=== PATIENT | female | born 1955 | race Caucasian/White ===

== ENCOUNTER 2016-12-07 01:31 | Inpatient (IN) | payer OTHER ==
[~2016-12-07] VITALS: Ht 167.6 cm; Wt 147.2 kg
[~2016-12-07 01:31] MED LIST: Aspirin E.C. PO; Atarax PO; BUMETANIDE0.5 MG PO; BUSPAR10 MG; BUSPAR10 MG PO; BUSPAR15 MG PO; Buspar PO; CALAN SR,COVER120 MG PO; CRESTOR20 MG PO; Ceftin PO; DAILY VITAMIN1 EAC8 PO; GLUCOSAMINE-CH1 EA11 PO; HYDROCHLOROTHIA25 MG PO; Hydrodiuril,Oretic,E PO; KEPPRA750 MG PO; LAMICTAL200 MG PO; LASIX40 MG PO; LEXAPRO20 MG PO; LISINOPRIL10 MG PO; LaMICtal PO; Lexapro PO; MEGA BIOTIN10000 MCG PO; METFORMIN HCL500 MG PO; NABUMETONE750 MG PO; NEXIUM40 MG PO; OXYCODONE HCL5 MG PO; Relafen PO; SODIUM CHLORIDE1 G1 PO; Sodium Chloride PO; TRILEPTAL600 MG PO; Trileptal PO; VERAPAMIL ER300 MG PO; VERELAN PM300 MG PO; VYTORIN 10/21 TABLET PO; ZITHROMAX250 MG PO; predniSONE PO
[2016-12-07 02:13] LABS: BASOPHIL COUNT 0.1 K/uL (0-0.1); EOSINOPHIL (%) 0.5 % (0-5); HEMATOCRIT 38.2 % (36.0-46.0); IMMATURE GRANULOCYTE (%) 0.4 % (0.0-0.7); INSTRUMENT ABS NEUTROPHIL CT 6.7 K/uL; LYMPHOCYTE COUNT 1.3 K/uL (1.0-2.8); MCH 29.2 PG (29.0-34.0); MCHC 31.7 G/DL (30.0-36.0); MCV 92.3 FL (83-99); MEAN PLAT.VOLUME 10.6 uM^3 (9.5-12.4); MONOCYTE (%) 4.8 % (3-12); MONOCYTE COUNT 0.4 K/uL (0-0.8); NEUTROPHIL (%) 78.6 % (45-76); NEUTROPHIL COUNT 6.7 K/uL (1.8-6.4); PLATELET COUNT 228 K/uL (156-360); RBC DIS.WIDTH-SD 44.1 % (39-53); RED BLOOD COUNT 4.14 M/uL (3.80-5.20); WHITE BLOOD COUNT 8.5 K/uL (4.1-10.2)
[2016-12-07 02:25] LABS: CHLORIDE 99 mEq/L (99-109); POTASSIUM 4.9 mEq/L (3.7-5.4); SODIUM 137 mEq/L (136-147)
[2016-12-07 02:27] LABS: GLUCOSE 178 mg/dL (70-99)
[2016-12-07 02:28] LABS: ANION GAP 14 MEQ/L (2-14); PROTHROMBIN TIME 10.6 (9.2-11.2)
[2016-12-07 02:29] LABS: TOTAL BILIRUBIN 0.4 mg/dL (0.0-1.0)
[2016-12-07 02:31] LABS: ALKALINE PHOSPHATASE 152 IU/L (3-129); GFR ESTIMATE (CALCULATED) > 59 mL/min/
[2016-12-07 02:32] LABS: UREA NITROGEN (BUN) 17 mg/dL (9-23)
[2016-12-07 02:34] LABS: LIPASE 9 U/L (1.0-51.0)
[2016-12-07 02:41] LABS: TROP-I INTERPRETATION NEGATIVE; TROPONIN-I < 0.01 ng/mL (0.0-0.30)
[2016-12-07 03:22] LABS: CREATINE KINASE 199 IU/L (1-294)
[2016-12-07 04:15] LABS: ADD MIUA? NO; BILIRUBIN NEGATIVE; BLOOD NEGATIVE; COLOR YELLOW ((YELLOW)); GLUCOSE (STRIP) NEGATIVE; KETONES NEGATIVE; LEUKOCYTES NEGATIVE; NITRITE NEGATIVE; PROTEIN (STRIP) NEGATIVE; SPECIFIC GRAVITY 1.013 (1.000-1.030); UCUL ADDED? NO; UROBILINOGEN 0.2 MG/DL (0.2-1.0)
[2016-12-07 05:40] VITALS: BP 136/65
[2016-12-07 07:25] VITALS: BP 163/65
[2016-12-07] MEDS ORDERED: LISINOPRIL40 MG PO (09:28)
[2016-12-07] MEDS ORDERED: ERGOCALCIF50000 UNIT PO (09:31)
[2016-12-07] MEDS ORDERED: KLOR-CON M2020 MEQ PO (09:32)
[2016-12-07 12:03] VITALS: BP 164/84
[2016-12-07 15:56] LABS: POINT-OF-CARE METER ID UU14188577
[2016-12-07 16:10] VITALS: BP 123/64
[2016-12-07 19:58] VITALS: BP 132/68
[2016-12-07 21:53] LABS: POINT-OF-CARE METER ID UU14149397
[2016-12-08 00:02] VITALS: BP 145/67
[2016-12-08 04:16] VITALS: BP 140/84
[2016-12-08 06:23] LABS: HEMATOCRIT 31.8 % (36.0-46.0); MCH 29.3 PG (29.0-34.0); MCHC 31.8 G/DL (30.0-36.0); MCV 92.2 FL (83-99); MEAN PLAT.VOLUME 10.6 uM^3 (9.5-12.4); PLATELET COUNT 195 K/uL (156-360); RBC DIS.WIDTH-CV 13.4 % (11.8-14.6); RBC DIS.WIDTH-SD 44.9 % (39-53); RED BLOOD COUNT 3.45 M/uL (3.80-5.20)
[2016-12-08 06:25] LABS: WHITE BLOOD COUNT 5.3 K/uL (4.1-10.2)
[2016-12-08 06:30] LABS: ALKALINE PHOSPHATASE 112 IU/L (3-129); ANION GAP 8 MEQ/L (2-14); CHLORIDE 101 MEQ/L (99-109); GFR ESTIMATE (CALCULATED) > 59 mL/min/; HDL CHOLESTEROL 50 MG/DL (Desirable>=50); LDL CHOLESTEROL 87 mg/dL (Desirable<100); NON-HDL CHOLESTEROL 115 mg/dL (Desirable<160); SAMPLE HEMOLYSIS CHECK 0; SAMPLE ICTERIC CHECK 0; SAMPLE LIPEMIA CHECK 0; SODIUM 137 MEQ/L (136-147); TOTAL BILIRUBIN 0.5 MG/DL (0.0-1.0); TOTAL CHOLESTEROL 165 mg/dL (Desirable<200); TRIGLYCERIDES 139 MG/DL (Normal: <150); UREA NITROGEN (BUN) 12 mg/dL (9-23)
[2016-12-08 06:30] LABS: POINT-OF-CARE METER ID UU14188577
[2016-12-08 06:41] LABS: GLUCOSE 100 mg/dL (70-99); POTASSIUM 3.9 MEQ/L (3.7-5.4)
[2016-12-08 11:33] VITALS: BP 155/76
[2016-12-08 11:46] LABS: POINT-OF-CARE METER ID UU14188577
[2016-12-08 15:35] VITALS: BP 133/59
[2016-12-08 17:46] LABS: POINT-OF-CARE METER ID UU14149397
[2016-12-08 19:43] VITALS: BP 132/72
[2016-12-09 00:15] VITALS: BP 120/60
[2016-12-09 03:15] VITALS: BP 122/60
[2016-12-09 05:54] LABS: HEMATOCRIT 32.2 % (36.0-46.0); MCH 29.5 PG (29.0-34.0); MCHC 31.7 G/DL (30.0-36.0); MCV 93.1 FL (83-99); MEAN PLAT.VOLUME 10.3 uM^3 (9.5-12.4); PLATELET COUNT 170 K/uL (156-360); RBC DIS.WIDTH-CV 13.2 % (11.8-14.6); RBC DIS.WIDTH-SD 44.8 % (39-53); RED BLOOD COUNT 3.46 M/uL (3.80-5.20); WHITE BLOOD COUNT 5.2 K/uL (4.1-10.2)
[2016-12-09 06:44] LABS: POINT-OF-CARE METER ID UU14188577
[2016-12-09 06:52] LABS: ANION GAP 8 MEQ/L (2-14); CHLORIDE 103 MEQ/L (99-109); GFR ESTIMATE (CALCULATED) > 59 mL/min/; GLUCOSE 98 mg/dL (70-99); POTASSIUM 3.7 MEQ/L (3.7-5.4); SAMPLE HEMOLYSIS CHECK 0; SAMPLE ICTERIC CHECK 0; SAMPLE LIPEMIA CHECK 0; SODIUM 140 MEQ/L (136-147); UREA NITROGEN (BUN) 14 mg/dL (9-23)
[2016-12-09 08:11] VITALS: BP 110/51
[2016-12-09 12:30] VITALS: BP 116/67
== END 2016-12-09 14:26 | disposition home or self-care (01) | DRG 101 ==
LOC: EME → EDBD 01:31 → 3EAST 04:36 → EDOF 04:36 → 3EAST 05:19
PROVIDERS: Emergency Medicine; Hospitalist; Internal Medicine
DX: G40.909 Epilepsy, unspecified, not intractable, without status epilepticus (principal); I50.32 Chronic diastolic (congestive) heart failure; Z68.43 Body mass index [BMI] 50.0-59.9, adult; R41.82 Altered mental status, unspecified; F32.9 Major depressive disorder, single episode, unspecified; F41.9 Anxiety disorder, unspecified; I10 Essential (primary) hypertension; E11.9 Type 2 diabetes mellitus without complications; E78.5 Hyperlipidemia, unspecified; K21.9 Gastro-esophageal reflux disease without esophagitis; R25.1 Tremor, unspecified; E66.01 Morbid (severe) obesity due to excess calories; Z96.653 Presence of artificial knee joint, bilateral; S06.2X9S Diffuse traumatic brain injury with loss of consciousness of unspecified duration, sequela; Z88.5 Allergy status to narcotic agent; Z85.3 Personal history of malignant neoplasm of breast
CPT/HCPCS: 70450; 70551; 71010; 80048; 80053; 80061; 80156; 80175 90; 81003; 82550; 82948; 83605; 83690; 83880; 84484; 85025; 85027; 85610; 85730; 87040; 93005; 95819; 99281; 99285; J1650; J1815; J1953; J2060; J2250; J7030; J7050

== ENCOUNTER 2017-02-23 12:27 | Emergency (ER) | payer OTHER ==
[~2017-02-23] VITALS: Ht 167.6 cm; Wt 161.4 kg
[~2017-02-23 12:27] MED LIST changes: +ERGOCALCIF50000 UNIT PO; +KLOR-CON M2020 MEQ PO; +LISINOPRIL40 MG PO
[2017-02-23] MEDS ORDERED: LIDODERM 5% P1 PATCH TD (17:05)
[2017-02-23] MEDS ORDERED: FLEXERIL10 MG PO (17:05)
[2017-02-23] MEDS ORDERED: NORCO 5/3251 TABLET PO (17:05)
[2017-02-23] MEDS ORDERED: MOBIC7.5 MG PO (17:05)
[2017-02-23 18:34] LABS: ADD MIUA? YES; BILIRUBIN NEGATIVE; BLOOD NEGATIVE; COLOR YELLOW ((YELLOW)); GLUCOSE (STRIP) NEGATIVE; KETONES NEGATIVE; LEUKOCYTES SMALL; NITRITE NEGATIVE; PROTEIN (STRIP) NEGATIVE; UROBILINOGEN 0.2 MG/DL (0.2-1.0)
[2017-02-23 18:40] LABS: BACTERIA 1+ /HPF; EPITHELIAL CELLS RARE /HPF; HYALINE CASTS 0-5 /LPF; MUCUS TRACE /LPF; RED BLOOD CELLS 0-5 /HPF (0-5); WHITE BLOOD CELLS 20-30 /HPF (0-5)
== END 2017-02-23 18:34 | disposition home or self-care (01) ==
LOC: EME 12:27
PROVIDERS: Nurse Practitioner Family
DX: M25.561 Pain in right knee (principal); M54.41 Lumbago with sciatica, right side; G40.909 Epilepsy, unspecified, not intractable, without status epilepticus; R82.99 Other abnormal findings in urine; Z96.651 Presence of right artificial knee joint; Z91.81 History of falling; I10 Essential (primary) hypertension; E11.9 Type 2 diabetes mellitus without complications; Z79.84 Long term (current) use of oral hypoglycemic drugs
CPT/HCPCS: 73560; 81003; 99281; 99284

== ENCOUNTER 2017-02-25 10:05 | Inpatient (IN) | payer OTHER ==
[~2017-02-25] VITALS: Ht 162.6 cm; Wt 143.3 kg
[~2017-02-25 10:05] MED LIST changes: +FLEXERIL10 MG PO; +LIDODERM 5% P1 PATCH TD; +MOBIC7.5 MG PO; +NORCO 5/3251 TABLET PO
[2017-02-25 12:22] LABS: HEMATOCRIT 34.9 % (36.0-46.0); MCH 29.8 PG (29.0-34.0); MCHC 31.8 G/DL (30.0-36.0); MCV 93.8 FL (83-99); MEAN PLAT.VOLUME 10.6 uM^3 (9.5-12.4); PLATELET COUNT 206 K/uL (156-360); RBC DIS.WIDTH-CV 12.7 % (11.8-14.6); RBC DIS.WIDTH-SD 43.4 % (39-53); RED BLOOD COUNT 3.72 M/uL (3.80-5.20); WHITE BLOOD COUNT 6.1 K/uL (4.1-10.2)
[2017-02-25 12:37] LABS: CHLORIDE 105 mEq/L (99-109); POTASSIUM 4.7 mEq/L (3.7-5.4); SODIUM 139 mEq/L (136-147)
[2017-02-25 12:39] LABS: GLUCOSE 121 mg/dL (70-99)
[2017-02-25 12:40] LABS: ANION GAP 10 MEQ/L (2-14)
[2017-02-25 12:41] LABS: TOTAL BILIRUBIN 0.2 mg/dL (0.0-1.0)
[2017-02-25 12:42] LABS: ALKALINE PHOSPHATASE 128 IU/L (3-129)
[2017-02-25 12:43] LABS: GFR ESTIMATE (CALCULATED) 53 mL/min/
[2017-02-25 12:44] LABS: UREA NITROGEN (BUN) 17 mg/dL (9-23)
[2017-02-25 13:00] LABS: ADD MIUA? YES; BILIRUBIN NEGATIVE; BLOOD NEGATIVE; COLOR YELLOW ((YELLOW)); GLUCOSE (STRIP) NEGATIVE; KETONES NEGATIVE; LEUKOCYTES MODERATE; NITRITE POSITIVE; PROTEIN (STRIP) NEGATIVE; UROBILINOGEN 0.2 MG/DL (0.2-1.0)
[2017-02-25 13:04] LABS: BACTERIA RARE /HPF; EPITHELIAL CELLS 1+ /HPF; MUCUS TRACE /LPF; RED BLOOD CELLS 0-5 /HPF (0-5); UCUL ADDED? NO; WHITE BLOOD CELLS 20-30 /HPF (0-5)
[2017-02-25] MEDS ORDERED: BACTRIM,SEPT1 TABLET PO (13:37)
[2017-02-25] MEDS ORDERED: BUSPAR15 MG PO (18:00)
[2017-02-25 19:56] LABS: POINT-OF-CARE METER ID UU13113702
[2017-02-25 21:01] LABS: AMPHETAMINES QUANT VALUE 0 NG/ML; BARBITUATES QUANT VALUE 0 NG/ML; BENZODIAZEPINES QUANT VALUE 0 NG/ML; BENZODIAZEPINES, URINE SCREEN Negative (200 ng/mL); MARIJUANA QUANT VALUE 0 NG/ML; OPIATES QUANTITATIVE VALUE 0 NG/ML; PHENCYCLIDINE QUANT VALUE 0 NG/ML
[2017-02-25 22:06] VITALS: BP 151/72
[2017-02-26 04:02] VITALS: BP 119/60
[2017-02-26 06:22] LABS: HEMATOCRIT 29.7 % (36.0-46.0); MCH 30.6 PG (29.0-34.0); MCV 95.8 FL (83-99); MEAN PLAT.VOLUME 10.5 uM^3 (9.5-12.4); PLATELET COUNT 172 K/uL (156-360); RBC DIS.WIDTH-CV 12.8 % (11.8-14.6); RBC DIS.WIDTH-SD 44.9 % (39-53); WHITE BLOOD COUNT 4.8 K/uL (4.1-10.2)
[2017-02-26 06:33] LABS: POINT-OF-CARE METER ID UU14174225
[2017-02-26 06:45] LABS: ANION GAP 8 MEQ/L (2-14); CHLORIDE 106 MEQ/L (99-109); GFR ESTIMATE (CALCULATED) > 59 mL/min/; GLUCOSE 97 mg/dL (70-99); POTASSIUM 4.1 MEQ/L (3.7-5.4); SAMPLE HEMOLYSIS CHECK 0; SAMPLE ICTERIC CHECK 0; SAMPLE LIPEMIA CHECK 0; SODIUM 141 MEQ/L (136-147); UREA NITROGEN (BUN) 14 mg/dL (9-23)
[2017-02-26 12:06] VITALS: BP 129/61
[2017-02-26 12:14] LABS: POINT-OF-CARE METER ID UU14174225
[2017-02-26 16:33] VITALS: BP 130/66
[2017-02-26 17:06] LABS: POINT-OF-CARE METER ID UU14174225
[2017-02-26 21:25] VITALS: BP 126/66
[2017-02-26 21:32] LABS: POINT-OF-CARE METER ID UU13113717
[2017-02-26 23:50] VITALS: BP 119/57
[2017-02-27 03:57] VITALS: BP 160/74
[2017-02-27 05:46] LABS: POINT-OF-CARE METER ID UU14174225
[2017-02-27 08:00] VITALS: BP 147/62
[2017-02-27] MEDS ORDERED: CEFDINIR300 MG PO (11:42)
[2017-02-27 12:09] VITALS: BP 135/64
== END 2017-02-27 16:32 | disposition home health service (06) | DRG 101 ==
LOC: EME → EDBD 10:05 → EME 10:05 → EDOF 17:46 → 5SOUTH 20:10 → EDOF 20:10 → 5SOUTH 21:40
PROVIDERS: Emergency Medicine; Hospitalist; Internal Medicine
DX: G40.911 Epilepsy, unspecified, intractable, with status epilepticus (principal); F05 Delirium due to known physiological condition; I11.0 Hypertensive heart disease with heart failure; I50.22 Chronic systolic (congestive) heart failure; D64.9 Anemia, unspecified; E11.42 Type 2 diabetes mellitus with diabetic polyneuropathy; E66.01 Morbid (severe) obesity due to excess calories; E78.2 Mixed hyperlipidemia; K21.9 Gastro-esophageal reflux disease without esophagitis; M19.90 Unspecified osteoarthritis, unspecified site; N39.0 Urinary tract infection, site not specified; Z68.43 Body mass index [BMI] 50.0-59.9, adult; Z79.4 Long term (current) use of insulin; Z79.899 Other long term (current) drug therapy; Z85.3 Personal history of malignant neoplasm of breast; R25.1 Tremor, unspecified; R25.3 Fasciculation; R53.1 Weakness; Z79.84 Long term (current) use of oral hypoglycemic drugs; M25.561 Pain in right knee
CPT/HCPCS: 70450; 80048; 80053; 80175 90; 80306 90; 81003; 82948; 85027; 93005; 95819; 99281; 99285; J0696; J1644; J1953; J2060; J7030; J7050

== ENCOUNTER 2017-05-19 18:17 | Inpatient (IN) | payer OTHER ==
[~2017-05-19] VITALS: Ht 170.2 cm; Wt 138.9 kg
[~2017-05-19 18:17] MED LIST changes: +BACTRIM,SEPT1 TABLET PO; +CEFDINIR300 MG PO
[2017-05-19 19:20] LABS: HEMATOCRIT 36.4 % (36.0-46.0); MCH 30.2 PG (29.0-34.0); MCHC 33.2 G/DL (30.0-36.0); MCV 90.8 FL (83-99); MEAN PLAT.VOLUME 10.1 uM^3 (9.5-12.4); PLATELET COUNT 235 K/uL (156-360); RBC DIS.WIDTH-CV 12.4 % (11.8-14.6); RBC DIS.WIDTH-SD 41.1 % (39-53); RED BLOOD COUNT 4.01 M/uL (3.80-5.20); WHITE BLOOD COUNT 8.1 K/uL (4.1-10.2)
[2017-05-19 19:33] LABS: CHLORIDE 98 mEq/L (99-109); POTASSIUM 4.8 mEq/L (3.7-5.4); SODIUM 134 mEq/L (136-147)
[2017-05-19 19:34] LABS: GLUCOSE 145 mg/dL (70-99)
[2017-05-19 19:36] LABS: ANION GAP 11 MEQ/L (2-14)
[2017-05-19 19:38] LABS: GFR ESTIMATE (CALCULATED) > 59 mL/min/
[2017-05-19 19:39] LABS: UREA NITROGEN (BUN) 14 mg/dL (9-23)
[2017-05-19 19:40] LABS: TROP-I INTERPRETATION NEGATIVE; TROPONIN-I 0.02 ng/mL (0.0-0.30)
[2017-05-20 01:00] VITALS: BP 129/79
[2017-05-20 04:29] VITALS: BP 143/83
[2017-05-20 06:38] LABS: HEMATOCRIT 33.2 % (36.0-46.0); MCH 30.6 PG (29.0-34.0); MCHC 33.1 G/DL (30.0-36.0); MCV 92.2 FL (83-99); MEAN PLAT.VOLUME 10.5 uM^3 (9.5-12.4); PLATELET COUNT 230 K/uL (156-360); RBC DIS.WIDTH-CV 12.7 % (11.8-14.6); RBC DIS.WIDTH-SD 42.7 % (39-53); WHITE BLOOD COUNT 6.3 K/uL (4.1-10.2)
[2017-05-20 06:58] LABS: POINT-OF-CARE METER ID UU13113725
[2017-05-20 07:06] LABS: ALKALINE PHOSPHATASE 124 IU/L (3-129); ANION GAP 9 MEQ/L (2-14); CHLORIDE 101 MEQ/L (99-109); GFR ESTIMATE (CALCULATED) > 59 mL/min/; SAMPLE HEMOLYSIS CHECK 0; SAMPLE ICTERIC CHECK 0; SAMPLE LIPEMIA CHECK 0; SODIUM 137 MEQ/L (136-147); TOTAL BILIRUBIN 0.4 MG/DL (0.0-1.0); UREA NITROGEN (BUN) 13 mg/dL (9-23)
[2017-05-20 07:08] LABS: GLUCOSE 104 mg/dL (70-99)
[2017-05-20 08:02] VITALS: BP 127/59
[2017-05-20] MEDS ORDERED: FUROSEMIDE40 MG PO (11:19)
[2017-05-20] MEDS ORDERED: GLUCOSAMINE1000 MG PO (11:21)
[2017-05-20 11:23] VITALS: BP 116/55
[2017-05-20] MEDS ORDERED: NABUMETONE750 MG PO (11:34)
[2017-05-20] MEDS ORDERED: SODIUM CHLORIDE1 G1 PO (11:36)
[2017-05-20] MEDS ORDERED: CENTRUM ADULTS1 EACH PO (11:43)
[2017-05-20] MEDS ORDERED: ICY HOT CREAM35.4 G1 TP (11:49)
[2017-05-20] MEDS ORDERED: VOLTAREN 1% GE100 GM TP (11:51)
[2017-05-20 12:06] LABS: POINT-OF-CARE METER ID UU13113725
[2017-05-20 15:37] VITALS: BP 123/58
[2017-05-20 16:32] LABS: POINT-OF-CARE METER ID UU13113725
[2017-05-20 17:51] LABS: ADD MIUA? YES; BILIRUBIN NEGATIVE; BLOOD SMALL; COLOR YELLOW ((YELLOW)); GLUCOSE (STRIP) NEGATIVE; KETONES NEGATIVE; LEUKOCYTES MODERATE; NITRITE POSITIVE; PROTEIN (STRIP) NEGATIVE; SPECIFIC GRAVITY 1.018 (1.000-1.030); UROBILINOGEN 0.2 MG/DL (0.2-1.0)
[2017-05-20 18:28] LABS: BACTERIA NONE SEEN /HPF; EPITHELIAL CELLS RARE /HPF; MUCUS TRACE /LPF; RED BLOOD CELLS 0-5 /HPF (0-5); UCUL ADDED? YES; WHITE BLOOD CELLS 30-40 /HPF (0-5)
[2017-05-20 20:30] VITALS: BP 110/74
[2017-05-20 21:38] LABS: POINT-OF-CARE METER ID UU13113725
[2017-05-21] VITALS: BP 124/58
[2017-05-21 06:45] VITALS: BP 124/58
[2017-05-21 11:36] VITALS: BP 145/66
[2017-05-21 16:15] VITALS: BP 140/68
[2017-05-21 16:16] VITALS: BP 134/88
[2017-05-21 21:10] LABS: POINT-OF-CARE USER ID 610211320
[2017-05-22] VITALS: BP 131/60
[2017-05-22 04:37] VITALS: BP 127/66
[2017-05-22 05:39] LABS: POINT-OF-CARE METER ID UU13113725; POINT-OF-CARE USER ID 610211320
[2017-05-22 06:18] LABS: EOSINOPHIL (%) 4.2 % (0-5); EOSINOPHIL COUNT 0.2 K/uL (0-0.3); HEMATOCRIT 32.2 % (36.0-46.0); IMMATURE GRANULOCYTE (%) 0.2 % (0.0-0.7); INSTRUMENT ABS NEUTROPHIL CT 2.7 K/uL; LYMPHOCYTE COUNT 1.8 K/uL (1.0-2.8); MCH 31.2 PG (29.0-34.0); MCHC 33.5 G/DL (30.0-36.0); MCV 93.1 FL (83-99); MONOCYTE (%) 9.5 % (3-12); MONOCYTE COUNT 0.5 K/uL (0-0.8); NEUTROPHIL (%) 51.4 % (45-76); NEUTROPHIL COUNT 2.7 K/uL (1.8-6.4); PLATELET COUNT 197 K/uL (156-360); RBC DIS.WIDTH-CV 12.8 % (11.8-14.6); RBC DIS.WIDTH-SD 43.9 % (39-53); RED BLOOD COUNT 3.46 M/uL (3.80-5.20); WHITE BLOOD COUNT 5.3 K/uL (4.1-10.2)
[2017-05-22 07:22] VITALS: BP 120/56
[2017-05-22 07:55] LABS: ALKALINE PHOSPHATASE 108 IU/L (3-129); ANION GAP 9 MEQ/L (2-14); CHLORIDE 101 MEQ/L (99-109); GFR ESTIMATE (CALCULATED) > 59 mL/min/; GLUCOSE 125 mg/dL (70-99); POTASSIUM 4.1 MEQ/L (3.7-5.4); SAMPLE HEMOLYSIS CHECK 0; SAMPLE ICTERIC CHECK 0; SAMPLE LIPEMIA CHECK 0; SODIUM 135 MEQ/L (136-147); TOTAL BILIRUBIN 0.4 MG/DL (0.0-1.0); UREA NITROGEN (BUN) 9 mg/dL (9-23)
[2017-05-22 11:22] VITALS: BP 122/60
[2017-05-22 15:31] LABS: POINT-OF-CARE METER ID UU13113725
[2017-05-22 16:47] VITALS: BP 122/60
[2017-05-22 21:33] LABS: POINT-OF-CARE METER ID UU13113725
[2017-05-23 00:07] VITALS: BP 118/57
[2017-05-23 05:42] LABS: POINT-OF-CARE METER ID UU13113725
[2017-05-23 08:04] VITALS: BP 123/46
[2017-05-23] MEDS ORDERED: CEFTIN500 MG PO ×3 (14:52→18:28)
[2017-05-23 16:24] VITALS: BP 131/50
== END 2017-05-23 19:20 | disposition home or self-care (01) | DRG 101 ==
LOC: EME 18:17 → 5EAST 22:38 → EDOF 22:38 → ENRESERV 22:39 → 5EAST 05-20 00:31
PROVIDERS: Emergency Medicine; Hospitalist; Internal Medicine; Student in an Organized Health Care Education/Training Program
DX: G40.901 Epilepsy, unspecified, not intractable, with status epilepticus (principal); I10 Essential (primary) hypertension; E78.5 Hyperlipidemia, unspecified; R09.02 Hypoxemia; N39.0 Urinary tract infection, site not specified; R25.1 Tremor, unspecified; F32.0 Major depressive disorder, single episode, mild; B96.20 Unspecified Escherichia coli [E. coli] as the cause of diseases classified elsewhere; K21.9 Gastro-esophageal reflux disease without esophagitis; F41.9 Anxiety disorder, unspecified; E11.9 Type 2 diabetes mellitus without complications; E66.01 Morbid (severe) obesity due to excess calories; Z91.14 Patient's other noncompliance with medication regimen; Z96.653 Presence of artificial knee joint, bilateral; Z85.3 Personal history of malignant neoplasm of breast; Z68.42 Body mass index [BMI] 45.0-49.9, adult; Z88.6 Allergy status to analgesic agent; Z88.8 Allergy status to other drugs, medicaments and biological substances
CPT/HCPCS: 70450; 71010; 80048; 80053; 80175 90; 81003; 82607; 82746; 82948; 84443; 84484; 85025; 85027; 87040; 87077; 87086; 87186; 93005; 94799; 95819; 99281; 99285; J0696; J1650; J1815; J1953; J2060; J7030; J7050

== ENCOUNTER 2017-07-04 20:55 | Inpatient (IN) | payer OTHER ==
[~2017-07-04] VITALS: Ht 170.2 cm; Wt 138.0 kg
[~2017-07-04 20:55] MED LIST changes: +CEFTIN500 MG PO; +CENTRUM ADULTS1 EACH PO; +FUROSEMIDE40 MG PO; +GLUCOSAMINE1000 MG PO; +ICY HOT CREAM35.4 G1 TP; +VOLTAREN 1% GE100 GM TP
[2017-07-04 22:42] LABS: HEMATOCRIT 36.5 % (36.0-46.0); MCH 30.1 PG (29.0-34.0); MCHC 32.6 G/DL (30.0-36.0); MCV 92.4 FL (83-99); MEAN PLAT.VOLUME 10.3 uM^3 (9.5-12.4); PLATELET COUNT 233 K/uL (156-360); RBC DIS.WIDTH-CV 12.6 % (11.8-14.6); RBC DIS.WIDTH-SD 42.8 % (39-53); RED BLOOD COUNT 3.95 M/uL (3.80-5.20); WHITE BLOOD COUNT 6.1 K/uL (4.1-10.2)
[2017-07-04 22:50] LABS: CHLORIDE 101 mEq/L (99-109); POTASSIUM 5.4 mEq/L (3.7-5.4); SODIUM 136 mEq/L (136-147)
[2017-07-04 22:51] LABS: GLUCOSE 131 mg/dL (70-99)
[2017-07-04 22:53] LABS: ANION GAP 10 MEQ/L (2-14)
[2017-07-04 22:55] LABS: GFR ESTIMATE (CALCULATED) 48 mL/min/
[2017-07-04 22:56] LABS: UREA NITROGEN (BUN) 22 mg/dL (9-23)
[2017-07-05] MEDS ORDERED: GABAPENTIN300 MG PO (00:50)
[2017-07-05] MEDS ORDERED: SERTRALINE HCL100 MG PO (00:51)
[2017-07-05 01:27] VITALS: BP 156/72
[2017-07-05 05:00] VITALS: BP 130/80
[2017-07-05 06:24] LABS: HEMATOCRIT 35.2 % (36.0-46.0); MCH 29.5 PG (29.0-34.0); MCHC 31.8 G/DL (30.0-36.0); MCV 92.6 FL (83-99); MEAN PLAT.VOLUME 10.7 uM^3 (9.5-12.4); PLATELET COUNT 243 K/uL (156-360); RBC DIS.WIDTH-CV 12.6 % (11.8-14.6); WHITE BLOOD COUNT 6.3 K/uL (4.1-10.2)
[2017-07-05 06:48] LABS: ANION GAP 7 MEQ/L (2-14); CHLORIDE 99 MEQ/L (99-109); GFR ESTIMATE (CALCULATED) 53 mL/min/; GLUCOSE 112 mg/dL (70-99); POTASSIUM 4.9 MEQ/L (3.7-5.4); SAMPLE HEMOLYSIS CHECK 0; SAMPLE ICTERIC CHECK 0; SAMPLE LIPEMIA CHECK 0; SODIUM 133 MEQ/L (136-147); UREA NITROGEN (BUN) 21 mg/dL (9-23)
[2017-07-05 07:52] VITALS: BP 140/85
[2017-07-05 15:39] VITALS: BP 150/69
[2017-07-05 19:43] VITALS: BP 135/75
[2017-07-05 23:40] VITALS: BP 120/67
[2017-07-06 04:59] VITALS: BP 148/68
[2017-07-06 05:28] LABS: BASOPHIL COUNT 0.1 K/uL (0-0.1); EOSINOPHIL (%) 3.3 % (0-5); EOSINOPHIL COUNT 0.2 K/uL (0-0.3); HEMATOCRIT 33.1 % (36.0-46.0); IMMATURE GRANULOCYTE (%) 0.4 % (0.0-0.7); INSTRUMENT ABS NEUTROPHIL CT 4.2 K/uL; LYMPHOCYTE COUNT 1.7 K/uL (1.0-2.8); MCH 30.6 PG (29.0-34.0); MCHC 33.2 G/DL (30.0-36.0); MCV 91.9 FL (83-99); MEAN PLAT.VOLUME 10.8 uM^3 (9.5-12.4); MONOCYTE (%) 7.9 % (3-12); MONOCYTE COUNT 0.5 K/uL (0-0.8); NEUTROPHIL COUNT 4.2 K/uL (1.8-6.4); PLATELET COUNT 225 K/uL (156-360); RBC DIS.WIDTH-CV 12.8 % (11.8-14.6); RBC DIS.WIDTH-SD 43.1 % (39-53); WHITE BLOOD COUNT 6.7 K/uL (4.1-10.2)
[2017-07-06 05:51] LABS: ALKALINE PHOSPHATASE 101 IU/L (3-129); ANION GAP 12 MEQ/L (2-14); CHLORIDE 99 MEQ/L (99-109); GFR ESTIMATE (CALCULATED) 53 mL/min/; GLUCOSE 130 mg/dL (70-99); POTASSIUM 4.6 MEQ/L (3.7-5.4); SAMPLE HEMOLYSIS CHECK 0; SAMPLE ICTERIC CHECK 0; SAMPLE LIPEMIA CHECK 0; SODIUM 136 MEQ/L (136-147); TOTAL BILIRUBIN 0.4 MG/DL (0.0-1.0); UREA NITROGEN (BUN) 20 mg/dL (9-23)
[2017-07-06 08:45] VITALS: BP 178/72
[2017-07-06 11:53] VITALS: BP 105/58
[2017-07-06 16:20] VITALS: BP 102/68
[2017-07-06 19:44] VITALS: BP 110/56
[2017-07-06 23:50] VITALS: BP 111/81
[2017-07-07 03:37] VITALS: BP 135/65
[2017-07-07 09:50] VITALS: BP 119/68
[2017-07-07 12:18] VITALS: BP 105/52
[2017-07-07 16:00] VITALS: BP 105/52
[2017-07-07 19:12] VITALS: BP 107/50
[2017-07-08 00:17] VITALS: BP 112/56
[2017-07-08 04:30] VITALS: BP 133/61
[2017-07-08 09:34] VITALS: BP 140/99
[2017-07-08 11:10] VITALS: BP 134/82
[2017-07-08] MEDS ORDERED: LOVENOX40 MG/0.4 SC (14:15)
== END 2017-07-08 15:59 | DRG 101 ==
LOC: EME → EDBD 20:55 → EDOF 07-05 → ENRESERV 07-05 00:01 → 5WEST 07-05 01:10
PROVIDERS: Emergency Medicine; Hospitalist; Student in an Organized Health Care Education/Training Program
DX: G40.409 Other generalized epilepsy and epileptic syndromes, not intractable, without status epilepticus (principal); Z68.43 Body mass index [BMI] 50.0-59.9, adult; E11.9 Type 2 diabetes mellitus without complications; E66.01 Morbid (severe) obesity due to excess calories; E78.5 Hyperlipidemia, unspecified; F41.8 Other specified anxiety disorders; I10 Essential (primary) hypertension; K21.9 Gastro-esophageal reflux disease without esophagitis; R32 Unspecified urinary incontinence; M54.31 Sciatica, right side; Z79.84 Long term (current) use of oral hypoglycemic drugs; Z79.1 Long term (current) use of non-steroidal anti-inflammatories (NSAID); Z96.653 Presence of artificial knee joint, bilateral; Z85.3 Personal history of malignant neoplasm of breast; Z90.10 Acquired absence of unspecified breast and nipple
CPT/HCPCS: 70450; 70551; 80048; 80053; 81003; 85025; 85027; 90686; 93005; 94799; 95819; 99281; 99284; J1650; J2060; J7030

== ENCOUNTER 2017-08-13 17:02 | Inpatient (IN) | payer OTHER ==
[~2017-08-13] VITALS: Ht 177.8 cm; Wt 139.6 kg
[~2017-08-13 17:02] MED LIST changes: +GABAPENTIN300 MG PO; +LOVENOX40 MG/0.4 SC; +SERTRALINE HCL100 MG PO
[2017-08-13 18:09] LABS: EOSINOPHIL COUNT 0.1 K/uL (0-0.3); HEMATOCRIT 36.1 % (36.0-46.0); IMMATURE GRANULOCYTE (%) 0.3 % (0.0-0.7); INSTRUMENT ABS NEUTROPHIL CT 5.1 K/uL; LYMPHOCYTE COUNT 1.5 K/uL (1.0-2.8); MCH 30.4 PG (29.0-34.0); MCHC 32.7 G/DL (30.0-36.0); MEAN PLAT.VOLUME 10.8 uM^3 (9.5-12.4); MONOCYTE (%) 6.3 % (3-12); MONOCYTE COUNT 0.5 K/uL (0-0.8); NEUTROPHIL (%) 71.1 % (45-76); NEUTROPHIL COUNT 5.1 K/uL (1.8-6.4); PLATELET COUNT 229 K/uL (156-360); RBC DIS.WIDTH-CV 12.6 % (11.8-14.6); RED BLOOD COUNT 3.88 M/uL (3.80-5.20); WHITE BLOOD COUNT 7.1 K/uL (4.1-10.2)
[2017-08-13 18:18] LABS: INTER. NORMALIZED RATIO 1.1; PROTHROMBIN TIME 12.4 SEC (10.2-12.9)
[2017-08-13 18:19] LABS: CHLORIDE 101 mEq/L (99-109); POTASSIUM 4.6 mEq/L (3.7-5.4); SODIUM 136 mEq/L (136-147)
[2017-08-13 18:21] LABS: GLUCOSE 141 mg/dL (70-99); PTT 29.7 SEC (25-37)
[2017-08-13 18:22] LABS: ANION GAP 9 MEQ/L (2-14)
[2017-08-13 18:23] LABS: TOTAL BILIRUBIN 0.2 mg/dL (0.0-1.0)
[2017-08-13 18:25] LABS: ALKALINE PHOSPHATASE 126 IU/L (3-129); GFR ESTIMATE (CALCULATED) > 59 mL/min/
[2017-08-13 18:26] LABS: UREA NITROGEN (BUN) 18 mg/dL (9-23)
[2017-08-13 18:32] LABS: TROP-I INTERPRETATION NEGATIVE; TROPONIN-I < 0.01 ng/mL (0.0-0.30)
[2017-08-13] MEDS ORDERED: LISINOPRIL40 MG PO (21:37)
[2017-08-13] MEDS ORDERED: GABAPENTIN300 MG PO (21:38)
[2017-08-13] MEDS ORDERED: LEXAPRO20 MG PO (21:39)
[2017-08-13] MEDS ORDERED: ALEVE220 MG PO (21:42)
[2017-08-13] MEDS ORDERED: VOLTAREN 1% GE100 GM TP (21:42)
[2017-08-13] MEDS ORDERED: TYLENOL EXTRA500 MG PO (21:42)
[2017-08-14 05:14] LABS: ADD MIUA? YES; BILIRUBIN NEGATIVE; BLOOD NEGATIVE; COLOR YELLOW ((YELLOW)); GLUCOSE (STRIP) NEGATIVE; KETONES NEGATIVE; LEUKOCYTES MODERATE; NITRITE POSITIVE; PROTEIN (STRIP) NEGATIVE; SPECIFIC GRAVITY 1.015 (1.000-1.030); UROBILINOGEN 0.2 MG/DL (0.2-1.0)
[2017-08-14 05:17] LABS: BACTERIA 2+ /HPF; EPITHELIAL CELLS RARE /HPF; MUCUS TRACE /LPF; RED BLOOD CELLS 0-5 /HPF (0-5); UCUL ADDED? YES; WHITE BLOOD CELLS TNTC /HPF (0-5)
[2017-08-14 06:18] LABS: HEMATOCRIT 32.4 % (36.0-46.0); MCH 30.4 PG (29.0-34.0); MCHC 32.7 G/DL (30.0-36.0); MCV 92.8 FL (83-99); MEAN PLAT.VOLUME 10.3 uM^3 (9.5-12.4); PLATELET COUNT 202 K/uL (156-360); RBC DIS.WIDTH-CV 12.7 % (11.8-14.6); RBC DIS.WIDTH-SD 43.1 % (39-53); RED BLOOD COUNT 3.49 M/uL (3.80-5.20); WHITE BLOOD COUNT 6.6 K/uL (4.1-10.2)
[2017-08-14 06:32] LABS: CHLORIDE 104 mEq/L (99-109); POTASSIUM 3.8 mEq/L (3.7-5.4); SODIUM 138 mEq/L (136-147)
[2017-08-14 06:34] LABS: GLUCOSE 127 mg/dL (70-99)
[2017-08-14 06:36] LABS: ANION GAP 9 MEQ/L (2-14)
[2017-08-14 06:38] LABS: GFR ESTIMATE (CALCULATED) > 59 mL/min/
[2017-08-14 06:39] LABS: UREA NITROGEN (BUN) 14 mg/dL (9-23)
[2017-08-14 07:01] LABS: HDL CHOLESTEROL 51 MG/DL (Desirable>=50); LDL CHOLESTEROL 71 mg/dL (Desirable<100); NON-HDL CHOLESTEROL 91 mg/dL (Desirable<160); TOTAL CHOLESTEROL 142 mg/dL (Desirable<200); TRIGLYCERIDES 101 MG/DL (Normal: <150)
[2017-08-14 07:25] LABS: Estimated Average Glucose 128 mg/dL (70-123); HEMOGLOBIN A1c (GLYCOHEMOGLOB) 6.1 % HGB (Below 5.7)
[2017-08-14 07:47] LABS: POINT-OF-CARE METER ID UU13113702
[2017-08-14 10:50] VITALS: BP 108/89
[2017-08-14 12:19] LABS: POINT-OF-CARE METER ID UU14100415
[2017-08-14 14:58] VITALS: BP 120/72
[2017-08-14 17:52] LABS: POINT-OF-CARE METER ID UU14174225
[2017-08-14 20:27] VITALS: BP 132/61
[2017-08-14 21:22] LABS: POINT-OF-CARE METER ID UU14174225
[2017-08-15] VITALS (7 sets, daily range): BP systolic 113–134; BP diastolic 52–85
[2017-08-15 07:00] LABS: HEMATOCRIT 31.3 % (36.0-46.0); MCH 30.4 PG (29.0-34.0); MCHC 32.6 G/DL (30.0-36.0); MCV 93.4 FL (83-99); MEAN PLAT.VOLUME 10.7 uM^3 (9.5-12.4); PLATELET COUNT 177 K/uL (156-360); RBC DIS.WIDTH-CV 12.6 % (11.8-14.6); RBC DIS.WIDTH-SD 43.2 % (39-53); RED BLOOD COUNT 3.35 M/uL (3.80-5.20); WHITE BLOOD COUNT 5.6 K/uL (4.1-10.2)
[2017-08-15 07:28] LABS: ANION GAP 9 MEQ/L (2-14); CHLORIDE 102 MEQ/L (99-109); GFR ESTIMATE (CALCULATED) > 59 mL/min/; GLUCOSE 114 mg/dL (70-99); SAMPLE HEMOLYSIS CHECK 0; SAMPLE ICTERIC CHECK 0; SAMPLE LIPEMIA CHECK 0; SODIUM 139 MEQ/L (136-147); UREA NITROGEN (BUN) 15 mg/dL (9-23)
[2017-08-15 08:28] LABS: POINT-OF-CARE METER ID UU13113717
[2017-08-15 12:10] LABS: POINT-OF-CARE METER ID UU14174225
[2017-08-15 16:19] LABS: POINT-OF-CARE METER ID UU14174225
[2017-08-15 21:21] LABS: POINT-OF-CARE METER ID UU14174225
[2017-08-16 04:02] VITALS: BP 138/64
[2017-08-16 08:00] VITALS: BP 95/69
[2017-08-16 08:06] LABS: POINT-OF-CARE METER ID UU14174225
[2017-08-16 11:49] LABS: POINT-OF-CARE METER ID UU14174225
[2017-08-16 16:09] VITALS: BP 123/74
[2017-08-16 16:24] LABS: POINT-OF-CARE METER ID UU13113717
[2017-08-16 20:56] LABS: POINT-OF-CARE METER ID UU13113717
[2017-08-16 23:59] VITALS: BP 111/56
[2017-08-17 06:41] LABS: HEMATOCRIT 31.4 % (36.0-46.0); MCH 30.1 PG (29.0-34.0); MCHC 32.8 G/DL (30.0-36.0); MCV 91.8 FL (83-99); MEAN PLAT.VOLUME 11.1 uM^3 (9.5-12.4); PLATELET COUNT 179 K/uL (156-360); RBC DIS.WIDTH-CV 12.3 % (11.8-14.6); RBC DIS.WIDTH-SD 41.5 % (39-53); RED BLOOD COUNT 3.42 M/uL (3.80-5.20); WHITE BLOOD COUNT 5.9 K/uL (4.1-10.2)
[2017-08-17 07:06] LABS: ANION GAP 8 MEQ/L (2-14); CHLORIDE 100 MEQ/L (99-109); GFR ESTIMATE (CALCULATED) > 59 mL/min/; GLUCOSE 108 mg/dL (70-99); POTASSIUM 3.9 MEQ/L (3.7-5.4); SAMPLE HEMOLYSIS CHECK 0; SAMPLE ICTERIC CHECK 0; SAMPLE LIPEMIA CHECK 0; SODIUM 136 MEQ/L (136-147); UREA NITROGEN (BUN) 16 mg/dL (9-23)
[2017-08-17 08:00] VITALS: BP 104/69
[2017-08-17 12:17] LABS: POINT-OF-CARE METER ID UU13113717
== END 2017-08-17 12:58 | disposition home health service (06) | DRG 100 ==
LOC: EME 17:02 → EDOF 23:21 → ENRESERV 23:23 → EDOF 08-14 13:05 → ENRESERV 08-14 13:55 → 5SOUTH 08-14 15:39 → ENPENDDIS 08-17 10:12 → 5SOUTH 08-17 12:58
PROVIDERS: Emergency Medicine; Hospitalist
DX: G40.919 Epilepsy, unspecified, intractable, without status epilepticus (principal); G93.41 Metabolic encephalopathy; N30.00 Acute cystitis without hematuria; E11.65 Type 2 diabetes mellitus with hyperglycemia; I50.32 Chronic diastolic (congestive) heart failure; E11.51 Type 2 diabetes mellitus with diabetic peripheral angiopathy without gangrene; I11.0 Hypertensive heart disease with heart failure; E66.01 Morbid (severe) obesity due to excess calories; K21.0 Gastro-esophageal reflux disease with esophagitis; D64.9 Anemia, unspecified; G89.29 Other chronic pain; F41.8 Other specified anxiety disorders; E78.2 Mixed hyperlipidemia; M15.9 Polyosteoarthritis, unspecified; Z82.49 Family history of ischemic heart disease and other diseases of the circulatory system; Z85.3 Personal history of malignant neoplasm of breast; Z79.4 Long term (current) use of insulin; Z80.0 Family history of malignant neoplasm of digestive organs; Z80.8 Family history of malignant neoplasm of other organs or systems; Z68.43 Body mass index [BMI] 50.0-59.9, adult; Z91.14 Patient's other noncompliance with medication regimen
CPT/HCPCS: 36415; 70450; 70551; 71010; 80048; 80053; 80061; 80177 90; 80299 90; 81003; 82948; 83036; 84484; 85025; 85027; 85610; 85730; 87077; 87086; 87186; 92523 GN; 93005; 93880; 95819; 99281; 99285; J0696; J1650; J1815; J1953; J2060; J7030; J7050

== ENCOUNTER 2017-09-27 21:32 | Inpatient (IN) | payer OTHER ==
[~2017-09-27] VITALS: Ht 165.1 cm; Wt 141.8 kg
[~2017-09-27 21:32] MED LIST changes: +ALEVE220 MG PO; +TYLENOL EXTRA500 MG PO
[2017-09-27 22:14] LABS: BASOPHIL (%) 0.6 % (0-1); BASOPHIL COUNT 0.1 K/uL (0-0.1); EOSINOPHIL (%) 2.3 % (0-5); EOSINOPHIL COUNT 0.2 K/uL (0-0.3); HEMATOCRIT 35.6 % (36.0-46.0); HEMOGLOBIN 11.9 G/DL (11.9-15.5); IMMATURE GRANULOCYTE (%) 0.2 % (0.0-0.7); LYMPHOCYTE (%) 25.8 % (15-42); LYMPHOCYTE COUNT 2.1 K/uL (1.0-2.8); MCH 30.8 PG (29.0-34.0); MCHC 33.4 G/DL (30.0-36.0); MCV 92.2 FL (83-99); MONOCYTE (%) 7.2 % (3-12); MONOCYTE COUNT 0.6 K/uL (0-0.8); NEUTROPHIL (%) 63.9 % (45-76); NEUTROPHIL COUNT 5.3 K/uL (1.8-6.4); PLATELET COUNT 244 K/uL (156-360); RBC DIS.WIDTH-CV 12.5 % (11.8-14.6); RBC DIS.WIDTH-SD 41.9 % (39-53); RED BLOOD COUNT 3.86 M/uL (3.80-5.20); WHITE BLOOD COUNT 8.3 K/uL (4.1-10.2)
[2017-09-27 22:24] LABS: ALBUMIN 4.3 g/dL (3.2-4.8)
[2017-09-27 22:25] LABS: CHLORIDE 103 mEq/L (99-109); POTASSIUM 4.3 mEq/L (3.7-5.4); SODIUM 138 mEq/L (136-147)
[2017-09-27 22:27] LABS: GLUCOSE 110 mg/dL (70-99)
[2017-09-27 22:29] LABS: TOTAL BILIRUBIN 0.2 mg/dL (0.0-1.0)
[2017-09-27 22:30] LABS: ALKALINE PHOSPHATASE 131 IU/L (3-129)
[2017-09-27 22:31] LABS: CREATININE 1.1 mg/dL (0.6-1.3); GFR ESTIMATE (CALCULATED) 53 mL/min/
[2017-09-27 22:32] LABS: AST (GOT) 15 IU/L (2-34); UREA NITROGEN (BUN) 18 mg/dL (9-23)
[2017-09-27 22:34] LABS: ALT (GPT) 11 IU/L (3-49); CREATINE KINASE 42 IU/L (1-294); TOTAL CK 42 IU/L (1-294)
[2017-09-27 22:40] LABS: CK-MB 0.4 ng/mL (0.0-4.9)
[2017-09-28 00:11] LABS: APPEARANCE CLEAR ((CLEAR)); BILIRUBIN NEGATIVE; BLOOD NEGATIVE; COLOR YELLOW ((YELLOW)); GLUCOSE (STRIP) NEGATIVE; KETONES NEGATIVE; LEUKOCYTES NEGATIVE; NITRITE NEGATIVE; PROTEIN (STRIP) NEGATIVE; SPECIFIC GRAVITY 1.013 (1.000-1.030); UCUL ADDED? NO; UROBILINOGEN 0.2 MG/DL (0.2-1.0)
[2017-09-28] MEDS ORDERED: CENTRUM WOMEN1 EACH PO (01:56)
[2017-09-28] MEDS ORDERED: NABUMETONE500 MG PO (01:58)
[2017-09-28] MEDS ORDERED: TRAMADOL HCL50 MG PO (02:01)
[2017-09-28 14:55] VITALS: BP 114/60
[2017-09-28 19:16] VITALS: BP 158/73
[2017-09-28 23:39] VITALS: BP 131/62
[2017-09-29 06:15] LABS: HEMATOCRIT 32.5 % (36.0-46.0); HEMOGLOBIN 10.5 G/DL (11.9-15.5); MCH 30.3 PG (29.0-34.0); MCHC 32.3 G/DL (30.0-36.0); MCV 93.7 FL (83-99); PLATELET COUNT 224 K/uL (156-360); RBC DIS.WIDTH-CV 12.8 % (11.8-14.6); RBC DIS.WIDTH-SD 43.8 % (39-53); RED BLOOD COUNT 3.47 M/uL (3.80-5.20); WHITE BLOOD COUNT 5.5 K/uL (4.1-10.2)
[2017-09-29 06:42] LABS: ALBUMIN 3.7 G/DL (3.2-4.8); ALKALINE PHOSPHATASE 96 IU/L (3-129); ALT (GPT) 10 IU/L (3-49); AST (GOT) 11 IU/L (2-34); CHLORIDE 105 MEQ/L (99-109); GFR ESTIMATE (CALCULATED) > 59 mL/min/; GLUCOSE 101 mg/dL (70-99); SODIUM 141 MEQ/L (136-147); TOTAL BILIRUBIN 0.3 MG/DL (0.0-1.0); TOTAL PROTEIN 5.8 G/DL (6.4-8.3); UREA NITROGEN (BUN) 14 mg/dL (9-23)
[2017-09-29 07:39] VITALS: BP 148/73
[2017-09-29 15:55] VITALS: BP 126/67
[2017-09-29 23:45] VITALS: BP 99/50
[2017-09-30 12:25] VITALS: BP 144/67
[2017-09-30 16:33] VITALS: BP 144/68
[2017-10-01 00:38] VITALS: BP 145/68
[2017-10-01 07:13] VITALS: BP 140/66
[2017-10-01 15:12] VITALS: BP 173/81
== END 2017-10-01 17:30 | DRG 101 ==
LOC: EME 21:32 → 5SOUTH 09-28 00:55 → EDOF 09-28 00:55 → ENRESERV 09-28 00:57 → 5SOUTH 09-28 14:48 → ENRESERV 09-29 16:56 → 5SOUTH 09-29 21:16
PROVIDERS: Emergency Medicine; Hospitalist; Internal Medicine
DX: G40.419 Other generalized epilepsy and epileptic syndromes, intractable, without status epilepticus (principal); I10 Essential (primary) hypertension; E78.5 Hyperlipidemia, unspecified; E11.9 Type 2 diabetes mellitus without complications; F41.8 Other specified anxiety disorders; K21.9 Gastro-esophageal reflux disease without esophagitis; G89.29 Other chronic pain; M19.90 Unspecified osteoarthritis, unspecified site; Z66 Do not resuscitate; E66.01 Morbid (severe) obesity due to excess calories; Z68.43 Body mass index [BMI] 50.0-59.9, adult; Z85.3 Personal history of malignant neoplasm of breast; Z87.440 Personal history of urinary (tract) infections
CPT/HCPCS: 70450; 80053; 80156; 80175 90; 81003; 82550; 82553; 82948; 85025; 85027; 95819; 97530 GO; 99281; 99285; J1650; J1815; J1953; J2060; J7030; J7040; J7050

== ENCOUNTER 2017-11-05 01:16 | Observation (INO) | payer OTHER ==
[~2017-11-05] VITALS: Ht 177.8 cm; Wt 133.3 kg
[~2017-11-05 01:16] MED LIST changes: +CENTRUM WOMEN1 EACH PO; +RELAFEN750 MG PO; +TRAMADOL HCL50 MG PO
[2017-11-05 01:53] LABS: HEMATOCRIT 36.2 % (36.0-46.0); HEMOGLOBIN 12.1 G/DL (11.9-15.5); MCH 30.1 PG (29.0-34.0); MCHC 33.4 G/DL (30.0-36.0); PLATELET COUNT 241 K/uL (156-360); RBC DIS.WIDTH-CV 12.3 % (11.8-14.6); RBC DIS.WIDTH-SD 40.2 % (39-53); RED BLOOD COUNT 4.02 M/uL (3.80-5.20); WHITE BLOOD COUNT 5.9 K/uL (4.1-10.2)
[2017-11-05 02:02] LABS: ALBUMIN 4.4 g/dL (3.2-4.8)
[2017-11-05 02:03] LABS: CHLORIDE 98 mEq/L (99-109); POTASSIUM 4.5 mEq/L (3.7-5.4); SODIUM 136 mEq/L (136-147)
[2017-11-05 02:05] LABS: GLUCOSE 153 mg/dL (70-99); TOTAL PROTEIN 7.5 g/dL (6.4-8.3)
[2017-11-05 02:07] LABS: TOTAL BILIRUBIN 0.3 mg/dL (0.0-1.0)
[2017-11-05 02:08] LABS: ALKALINE PHOSPHATASE 141 IU/L (3-129)
[2017-11-05 02:09] LABS: GFR ESTIMATE (CALCULATED) > 59 mL/min/
[2017-11-05 02:10] LABS: AST (GOT) 16 IU/L (2-34); UREA NITROGEN (BUN) 16 mg/dL (9-23)
[2017-11-05 02:11] LABS: ALT (GPT) 15 IU/L (3-49)
[2017-11-05 02:12] LABS: CREATINE KINASE 31 IU/L (1-294); LIPASE 5 U/L (1.0-51.0); TOTAL CK 31 IU/L (1-294)
[2017-11-05 02:15] LABS: TROP-I INTERPRETATION NEGATIVE; TROPONIN-I 0.01 ng/mL (0.0-0.30)
[2017-11-05 02:18] LABS: CK-MB < 0.4 ng/mL (0.0-4.9)
[2017-11-05 02:59] LABS: APPEARANCE SL.HAZY ((CLEAR)); BILIRUBIN NEGATIVE; BLOOD SMALL; COLOR YELLOW ((YELLOW)); GLUCOSE (STRIP) NEGATIVE; KETONES NEGATIVE; LEUKOCYTES SMALL; NITRITE POSITIVE; PROTEIN (STRIP) NEGATIVE; SPECIFIC GRAVITY 1.017 (1.000-1.030); UROBILINOGEN 0.2 MG/DL (0.2-1.0)
[2017-11-05 03:14] LABS: BACTERIA 1+ /HPF; EPITHELIAL CELLS RARE /HPF; HYALINE CASTS 20-30 /LPF; MUCUS 1+ /LPF; RED BLOOD CELLS 0-5 /HPF (0-5); UCUL ADDED? YES; WHITE BLOOD CELLS 15-20 /HPF (0-5)
[2017-11-05 03:44] LABS: CARBAMAZEPINE (TEGRETOL) < 2.0 MCG/ML (4.0-12.0)
[2017-11-05 05:41] VITALS: BP 140/95
[2017-11-05 10:37] VITALS: BP 136/73
[2017-11-05] MEDS ORDERED: TYLENOL WITH C1 EACH PO (15:28)
[2017-11-05 15:50] VITALS: BP 132/59
[2017-11-05 19:28] VITALS: BP 122/72
[2017-11-05 23:53] VITALS: BP 117/86
[2017-11-06 04:33] VITALS: BP 125/59
[2017-11-06 06:04] LABS: HEMATOCRIT 32.3 % (36.0-46.0); HEMOGLOBIN 10.3 G/DL (11.9-15.5); MCH 29.6 PG (29.0-34.0); MCHC 31.9 G/DL (30.0-36.0); MCV 92.8 FL (83-99); PLATELET COUNT 207 K/uL (156-360); RBC DIS.WIDTH-CV 12.7 % (11.8-14.6); RBC DIS.WIDTH-SD 42.9 % (39-53); RED BLOOD COUNT 3.48 M/uL (3.80-5.20)
[2017-11-06 06:31] LABS: CHLORIDE 99 MEQ/L (99-109); CREATININE 0.9 MG/DL (0.6-1.3); GFR ESTIMATE (CALCULATED) > 59 mL/min/; SODIUM 135 MEQ/L (136-147); UREA NITROGEN (BUN) 13 mg/dL (9-23)
[2017-11-06 06:40] LABS: GLUCOSE 108 mg/dL (70-99)
[2017-11-06 07:50] VITALS: BP 118/52
[2017-11-06] MEDS ORDERED: CEFTIN500 MG PO (11:53)
[2017-11-06 12:08] VITALS: BP 121/67
[2017-11-06 15:51] VITALS: BP 125/72
== END 2017-11-06 16:07 | disposition home or self-care (01) ==
LOC: EME 01:16 → 5WEST 03:51 → EDOF 03:51 → ENRESERV 03:52 → 5WEST 05:26 → ENPENDDIS 11-06 → 5WEST 11-06 16:07
PROVIDERS: Emergency Medicine; Hospitalist
DX: G40.919 Epilepsy, unspecified, intractable, without status epilepticus (principal); R41.82 Altered mental status, unspecified; N39.0 Urinary tract infection, site not specified; R09.02 Hypoxemia; E11.9 Type 2 diabetes mellitus without complications; F41.8 Other specified anxiety disorders; I44.0 Atrioventricular block, first degree; E66.01 Morbid (severe) obesity due to excess calories; Z68.43 Body mass index [BMI] 50.0-59.9, adult; M19.90 Unspecified osteoarthritis, unspecified site; M54.31 Sciatica, right side; Z79.84 Long term (current) use of oral hypoglycemic drugs; E78.5 Hyperlipidemia, unspecified; I10 Essential (primary) hypertension; G89.29 Other chronic pain; K21.9 Gastro-esophageal reflux disease without esophagitis; Z85.3 Personal history of malignant neoplasm of breast; Z87.440 Personal history of urinary (tract) infections; Z66 Do not resuscitate; Z80.0 Family history of malignant neoplasm of digestive organs; Z80.8 Family history of malignant neoplasm of other organs or systems; Z82.49 Family history of ischemic heart disease and other diseases of the circulatory system; Z91.030 Bee allergy status; Z88.5 Allergy status to narcotic agent; Z88.8 Allergy status to other drugs, medicaments and biological substances; Z90.49 Acquired absence of other specified parts of digestive tract
CPT/HCPCS: 80048; 80053; 80156; 80175 90; 81003; 82550; 82553; 82948; 83605; 83690; 84484; 85027; 87077; 87086; 87186; 93005; 94799; 99281; 99285; G0378; J0696; J1644; J2060; J7030

== ENCOUNTER 2018-02-08 09:17 | Observation (INO) | payer OTHER ==
[~2018-02-08] VITALS: Ht 175.3 cm; Wt 128.0 kg
[~2018-02-08 09:17] MED LIST changes: +TYLENOL WITH C1 EACH PO
[2018-02-08 10:01] LABS: HEMOGLOBIN 11.1 G/DL (11.9-15.5); MCH 30.7 PG (29.0-34.0); MCHC 33.6 G/DL (30.0-36.0); MCV 91.4 FL (83-99); PLATELET COUNT 216 K/uL (156-360); RBC DIS.WIDTH-CV 12.9 % (11.8-14.6); RBC DIS.WIDTH-SD 43.1 % (39-53); RED BLOOD COUNT 3.61 M/uL (3.80-5.20); WHITE BLOOD COUNT 5.2 K/uL (4.1-10.2)
[2018-02-08 10:09] LABS: ALBUMIN 4.2 g/dL (3.2-4.8); CHLORIDE 101 mEq/L (99-109); POTASSIUM 4.4 mEq/L (3.7-5.4); SODIUM 140 mEq/L (136-147)
[2018-02-08 10:12] LABS: GLUCOSE 147 mg/dL (70-99); TOTAL PROTEIN 7.2 g/dL (6.4-8.3)
[2018-02-08 10:14] LABS: TOTAL BILIRUBIN 0.3 mg/dL (0.0-1.0)
[2018-02-08 10:15] LABS: ALKALINE PHOSPHATASE 123 IU/L (3-129); CREATININE 1.3 mg/dL (0.6-1.3); GFR ESTIMATE (CALCULATED) 44 mL/min/
[2018-02-08 10:16] LABS: UREA NITROGEN (BUN) 25 mg/dL (9-23)
[2018-02-08 10:17] LABS: AST (GOT) 13 IU/L (2-34)
[2018-02-08 10:18] LABS: ALT (GPT) 11 IU/L (3-49)
[2018-02-08 10:21] LABS: TROP-I INTERPRETATION NEGATIVE; TROPONIN-I 0.01 ng/mL (0.0-0.30)
[2018-02-08 12:34] LABS: APPEARANCE CLEAR ((CLEAR)); BILIRUBIN NEGATIVE; BLOOD NEGATIVE; COLOR YELLOW ((YELLOW)); GLUCOSE (STRIP) NEGATIVE; KETONES NEGATIVE; LEUKOCYTES TRACE; NITRITE POSITIVE; PROTEIN (STRIP) NEGATIVE; SPECIFIC GRAVITY 1.013 (1.000-1.030); UROBILINOGEN 0.2 MG/DL (0.2-1.0)
[2018-02-08 12:37] LABS: BACTERIA RARE /HPF; EPITHELIAL CELLS NONE SEEN /HPF; MUCUS TRACE /LPF; RED BLOOD CELLS 0-5 /HPF (0-5); UCUL ADDED? YES
[2018-02-08] MEDS ORDERED: METFORMIN HCL500 M1 PO (13:29)
[2018-02-08 14:47] VITALS: BP 178/85
[2018-02-08 19:50] VITALS: BP 132/84
[2018-02-09 00:22] VITALS: BP 161/80
[2018-02-09 04:30] VITALS: BP 166/75
[2018-02-09 05:57] LABS: CHLORIDE 101 MEQ/L (99-109); GFR ESTIMATE (CALCULATED) > 59 mL/min/; GLUCOSE 135 mg/dL (70-99); POTASSIUM 4.6 MEQ/L (3.7-5.4); SODIUM 140 MEQ/L (136-147); UREA NITROGEN (BUN) 19 mg/dL (9-23)
[2018-02-09 08:50] VITALS: BP 111/57
[2018-02-09 12:05] VITALS: BP 123/65
[2018-02-09] MEDS ORDERED: CIPRO500 MG PO (14:27)
[2018-02-09] MEDS ORDERED: CEFTIN500 MG PO (15:14)
[2018-02-09 15:39] VITALS: BP 126/61
== END 2018-02-09 17:34 | disposition home or self-care (01) ==
LOC: EME 09:17 → EDOF 12:52 → 4SOUTH 12:52 → EDOF 12:52 → ENRESERV 13:07 → 4SOUTH 14:10
PROVIDERS: Emergency Medicine Emergency Medical Services; Hospitalist
DX: G40.909 Epilepsy, unspecified, not intractable, without status epilepticus (principal); F05 Delirium due to known physiological condition; N39.0 Urinary tract infection, site not specified; Z87.440 Personal history of urinary (tract) infections; E78.5 Hyperlipidemia, unspecified; I10 Essential (primary) hypertension; F41.8 Other specified anxiety disorders; E11.9 Type 2 diabetes mellitus without complications; G89.29 Other chronic pain; M54.31 Sciatica, right side; K21.9 Gastro-esophageal reflux disease without esophagitis; E66.01 Morbid (severe) obesity due to excess calories; Z88.5 Allergy status to narcotic agent; Z88.8 Allergy status to other drugs, medicaments and biological substances; Z91.030 Bee allergy status; Z80.0 Family history of malignant neoplasm of digestive organs; Z82.49 Family history of ischemic heart disease and other diseases of the circulatory system; Z79.84 Long term (current) use of oral hypoglycemic drugs
CPT/HCPCS: 70450; 71045; 80048; 80053; 81003; 82948; 84484; 85027; 87040; 87077; 87086; 87186; 93005; 95819; 99281; 99285; G0378; G8978 GP CJ; G8979 GP CI; G8980 GP CI; G8987 GO CJ; G8988 CI; G8989 CJ; J0696; J1650; J2060; J2405; J7030

== ENCOUNTER 2018-03-13 20:50 | Observation (INO) | payer OTHER ==
[~2018-03-13] VITALS: Ht 172.7 cm; Wt 122.5 kg
[~2018-03-13 20:50] MED LIST changes: +CIPRO500 MG PO; +METFORMIN HCL500 M1 PO
[2018-03-13 21:35] LABS: HEMATOCRIT 32.6 % (36.0-46.0); HEMOGLOBIN 11.2 G/DL (11.9-15.5); MCH 31.6 PG (29.0-34.0); MCHC 34.4 G/DL (30.0-36.0); MCV 92.1 FL (83-99); PLATELET COUNT 207 K/uL (156-360); RBC DIS.WIDTH-SD 40.9 % (39-53); RED BLOOD COUNT 3.54 M/uL (3.80-5.20); WHITE BLOOD COUNT 6.8 K/uL (4.1-10.2)
[2018-03-13 21:39] LABS: CHLORIDE 100 mEq/L (99-109); POTASSIUM 4.8 mEq/L (3.7-5.4); SODIUM 136 mEq/L (136-147)
[2018-03-13 21:40] LABS: GLUCOSE 124 mg/dL (70-99)
[2018-03-13 21:44] LABS: CREATININE 1.2 mg/dL (0.6-1.3); GFR ESTIMATE (CALCULATED) 48 mL/min/
[2018-03-13 21:45] LABS: UREA NITROGEN (BUN) 22 mg/dL (9-23)
[2018-03-13 22:47] LABS: CARBAMAZEPINE (TEGRETOL) < 2.0 MCG/ML (4.0-12.0); PHENOBARBITAL < 5.0 MCG/ML (15-40)
[2018-03-13 23:17] LABS: COMMENTS - BLOOD GASES C+; DEVICE NC; O2 FLOW 2 L/MIN; PCO2 43 mm Hg (35-45); PO2 95 mm Hg (80-100); SITE RR; TOTAL RESP RATE 16 resp/min
[2018-03-13 23:18] LABS: BASE EXCESS 1.5 mEq/L (-3 to +3); BICARBONATE 26.6 mEq/L (22-26); CARBOXY HGB 1.2 % (0-5); METHEMOGLOBIN 0.6 % (0-1.5); O2 SATURATION (CALCULATED) 96.2 % (95-99)
[2018-03-14 00:23] LABS: APPEARANCE CLEAR ((CLEAR)); BILIRUBIN NEGATIVE; BLOOD NEGATIVE; COLOR YELLOW ((YELLOW)); GLUCOSE (STRIP) NEGATIVE; KETONES NEGATIVE; LEUKOCYTES TRACE; NITRITE POSITIVE; PROTEIN (STRIP) NEGATIVE; SPECIFIC GRAVITY 1.011 (1.000-1.030); UROBILINOGEN 0.2 MG/DL (0.2-1.0)
[2018-03-14 00:29] LABS: BACTERIA RARE /HPF; EPITHELIAL CELLS NONE SEEN /HPF; HYALINE CASTS 20-30 /LPF; MUCUS TRACE /LPF; RED BLOOD CELLS 0-5 /HPF (0-5); UCUL ADDED? NO; WHITE BLOOD CELLS 0-5 /HPF (0-5)
[2018-03-14 00:47] LABS: AMPHETAMINE NEGATIVE (500 ng/mL); BARBITURATES NEGATIVE (200 ng/mL); BENZODIAZEPINES NEGATIVE (150 ng/mL); BUPRENORPHINE NEGATIVE (10 ng/mL); COCAINE NEGATIVE (150 ng/mL); METHADONE NEGATIVE (200 ng/mL); METHAMPHETAMINE NEGATIVE (500 ng/mL); OPIATES (MORPHINE) PRESUMPTIVE POSITIVE (100 ng/mL); OXYCODONE NEGATIVE (100 ng/mL); PHENCYCLIDINE NEGATIVE (25 ng/mL); PROPOXYPHENE NEGATIVE (300 ng/mL); THC CANNABINOIDS NEGATIVE (50 ng/mL); TRICYCLIC ANTIDEPRESSANTS NEGATIVE (300 ng/mL)
[2018-03-14 07:46] VITALS: BP 113/57
[2018-03-14 11:00] VITALS: BP 112/58
[2018-03-14 15:54] VITALS: BP 123/69
[2018-03-14 20:28] VITALS: BP 137/73
[2018-03-15 00:48] VITALS: BP 142/80
[2018-03-15 03:53] VITALS: BP 124/72
[2018-03-15 06:49] LABS: HEMOGLOBIN 10.1 G/DL (11.9-15.5); MCH 30.1 PG (29.0-34.0); MCHC 32.6 G/DL (30.0-36.0); MCV 92.3 FL (83-99); PLATELET COUNT 193 K/uL (156-360); RBC DIS.WIDTH-CV 12.1 % (11.8-14.6); RBC DIS.WIDTH-SD 41.1 % (39-53); RED BLOOD COUNT 3.36 M/uL (3.80-5.20); WHITE BLOOD COUNT 5.1 K/uL (4.1-10.2)
[2018-03-15 07:10] LABS: ALBUMIN 3.9 G/DL (3.2-4.8); ALKALINE PHOSPHATASE 93 IU/L (3-129); ALT (GPT) 9 IU/L (3-49); AST (GOT) 11 IU/L (2-34); CHLORIDE 104 MEQ/L (99-109); CREATININE 0.9 MG/DL (0.6-1.3); GFR ESTIMATE (CALCULATED) > 59 mL/min/; GLUCOSE 106 mg/dL (70-99); POTASSIUM 4.2 MEQ/L (3.7-5.4); SODIUM 140 MEQ/L (136-147); TOTAL BILIRUBIN 0.3 MG/DL (0.0-1.0); TOTAL PROTEIN 5.9 G/DL (6.4-8.3); UREA NITROGEN (BUN) 17 mg/dL (9-23)
[2018-03-15 08:26] VITALS: BP 119/57
[2018-03-15 10:58] VITALS: BP 127/64
[2018-03-15] MEDS ORDERED: TORADOL10 MG PO ×2 (13:17→15:11)
[2018-03-15 15:56] VITALS: BP 109/57
== END 2018-03-15 19:20 | disposition home or self-care (01) ==
LOC: EME → EDBD 20:50 → EME 20:50 → EDOF 03-14 02:04 → 2EAST 03-14 02:04 → ENRESERV 03-14 02:06 → 2EAST 03-14 03:54
PROVIDERS: Emergency Medicine; Hospitalist; Student in an Organized Health Care Education/Training Program
DX: G40.909 Epilepsy, unspecified, not intractable, without status epilepticus (principal); R41.82 Altered mental status, unspecified; G89.29 Other chronic pain; I10 Essential (primary) hypertension; E78.5 Hyperlipidemia, unspecified; E11.9 Type 2 diabetes mellitus without complications; F32.9 Major depressive disorder, single episode, unspecified; K21.9 Gastro-esophageal reflux disease without esophagitis; G47.33 Obstructive sleep apnea (adult) (pediatric); M15.9 Polyosteoarthritis, unspecified; Z79.891 Long term (current) use of opiate analgesic; Z96.653 Presence of artificial knee joint, bilateral; Z82.49 Family history of ischemic heart disease and other diseases of the circulatory system; N39.0 Urinary tract infection, site not specified; Z79.84 Long term (current) use of oral hypoglycemic drugs; R09.02 Hypoxemia; Z88.5 Allergy status to narcotic agent; Z88.8 Allergy status to other drugs, medicaments and biological substances; Z91.030 Bee allergy status
CPT/HCPCS: 36600; 71045; 80048; 80053; 80156; 80175 90; 80184; 80185; 81003; 82803; 82948; 83605; 84999; 85027; 93005; 94799; 99281; 99285; G0378; J0696; J1650; J2060; J7030

== ENCOUNTER 2018-05-02 16:31 | Inpatient (IN) | payer OTHER ==
[~2018-05-02] VITALS: Ht 175.3 cm; Wt 120.3 kg
[~2018-05-02 16:31] MED LIST changes: +TORADOL10 MG PO; -VERAPAMIL ER300 MG PO; +VERAPAMIL SR120 MG PO
[2018-05-02 17:27] LABS: BASOPHIL (%) 0.8 % (0-1); BASOPHIL COUNT 0.1 K/uL (0-0.1); EOSINOPHIL (%) 1.3 % (0-5); EOSINOPHIL COUNT 0.1 K/uL (0-0.3); HEMATOCRIT 34.8 % (36.0-46.0); HEMOGLOBIN 11.6 G/DL (11.9-15.5); IMMATURE GRANULOCYTE (%) 0.3 % (0.0-0.7); LYMPHOCYTE (%) 17.2 % (15-42); LYMPHOCYTE COUNT 1.1 K/uL (1.0-2.8); MCH 30.7 PG (29.0-34.0); MCHC 33.3 G/DL (30.0-36.0); MCV 92.1 FL (83-99); MONOCYTE (%) 7.5 % (3-12); MONOCYTE COUNT 0.5 K/uL (0-0.8); NEUTROPHIL (%) 72.9 % (45-76); NEUTROPHIL COUNT 4.6 K/uL (1.8-6.4); PLATELET COUNT 253 K/uL (156-360); RBC DIS.WIDTH-CV 12.1 % (11.8-14.6); RBC DIS.WIDTH-SD 41.1 % (39-53); RED BLOOD COUNT 3.78 M/uL (3.80-5.20); WHITE BLOOD COUNT 6.3 K/uL (4.1-10.2)
[2018-05-02 17:39] LABS: ALBUMIN 4.3 g/dL (3.2-4.8)
[2018-05-02 17:40] LABS: CHLORIDE 99 mEq/L (99-109); SODIUM 133 mEq/L (136-147)
[2018-05-02 17:42] LABS: GLUCOSE 130 mg/dL (70-99); TOTAL PROTEIN 7.6 g/dL (6.4-8.3)
[2018-05-02 17:44] LABS: TOTAL BILIRUBIN 0.2 mg/dL (0.0-1.0)
[2018-05-02 17:45] LABS: ALKALINE PHOSPHATASE 121 IU/L (3-129)
[2018-05-02 17:46] LABS: CREATININE 1.1 mg/dL (0.6-1.3); GFR ESTIMATE (CALCULATED) 53 mL/min/
[2018-05-02 17:47] LABS: AST (GOT) 16 IU/L (2-34); CK-MB 0.4 ng/mL (0.0-4.9); UREA NITROGEN (BUN) 19 mg/dL (9-23)
[2018-05-02 17:49] LABS: ALT (GPT) 12 IU/L (3-49); CKMB RELATIVE INDEX 1.5 (0.0-3.9); CREATINE KINASE 27 IU/L (1-294); TOTAL CK 27 IU/L (1-294)
[2018-05-02] MEDS ORDERED: HYDROCORTISONE30 G3 TP (19:45)
[2018-05-02] MEDS ORDERED: FLUOXETINE HCL20 MG PO (19:45)
[2018-05-02] MEDS ORDERED: GLUCOSAMINE1000 MG PO (19:45)
[2018-05-02] MEDS ORDERED: CENTRUM ADULTS1 EACH PO (19:46)
[2018-05-02 20:29] LABS: APPEARANCE CLEAR ((CLEAR)); BILIRUBIN NEGATIVE; BLOOD NEGATIVE; COLOR YELLOW ((YELLOW)); GLUCOSE (STRIP) NEGATIVE; KETONES NEGATIVE; LEUKOCYTES NEGATIVE; NITRITE POSITIVE; PROTEIN (STRIP) NEGATIVE; SPECIFIC GRAVITY 1.012 (1.000-1.030); UROBILINOGEN 0.2 MG/DL (0.2-1.0)
[2018-05-02 20:42] LABS: BACTERIA RARE /HPF; EPITHELIAL CELLS RARE /HPF; HYALINE CASTS 0-5 /LPF; MUCUS 1+ /LPF; RED BLOOD CELLS NONE SEEN /HPF (0-5); UCUL ADDED? NO; WHITE BLOOD CELLS 0-5 /HPF (0-5)
[2018-05-02 22:14] VITALS: BP 140/71
[2018-05-03] VITALS: BP 148/74
[2018-05-03 05:53] LABS: HEMATOCRIT 33.2 % (36.0-46.0); MCH 30.5 PG (29.0-34.0); MCHC 33.1 G/DL (30.0-36.0); PLATELET COUNT 240 K/uL (156-360); RBC DIS.WIDTH-SD 40.7 % (39-53); RED BLOOD COUNT 3.61 M/uL (3.80-5.20); WHITE BLOOD COUNT 6.2 K/uL (4.1-10.2)
[2018-05-03 06:18] LABS: ALBUMIN 3.7 G/DL (3.2-4.8); ALKALINE PHOSPHATASE 98 IU/L (3-129); ALT (GPT) 10 IU/L (3-49); AST (GOT) 13 IU/L (2-34); CHLORIDE 97 MEQ/L (99-109); CREATININE 0.9 MG/DL (0.6-1.3); GFR ESTIMATE (CALCULATED) > 59 mL/min/; GLUCOSE 125 mg/dL (70-99); POTASSIUM 4.1 MEQ/L (3.7-5.4); SODIUM 135 MEQ/L (136-147); TOTAL BILIRUBIN 0.3 MG/DL (0.0-1.0); TOTAL PROTEIN 6.3 G/DL (6.4-8.3); UREA NITROGEN (BUN) 16 mg/dL (9-23)
[2018-05-03 07:34] VITALS: BP 157/93
[2018-05-03 16:31] VITALS: BP 127/73
[2018-05-04 00:11] VITALS: BP 144/78
[2018-05-04 05:54] LABS: HEMATOCRIT 35.2 % (36.0-46.0); HEMOGLOBIN 11.7 G/DL (11.9-15.5); MCH 30.2 PG (29.0-34.0); MCHC 33.2 G/DL (30.0-36.0); PLATELET COUNT 263 K/uL (156-360); RBC DIS.WIDTH-CV 12.3 % (11.8-14.6); RBC DIS.WIDTH-SD 40.5 % (39-53); RED BLOOD COUNT 3.87 M/uL (3.80-5.20); WHITE BLOOD COUNT 8.4 K/uL (4.1-10.2)
[2018-05-04 06:11] LABS: CHLORIDE 98 MEQ/L (99-109); CREATININE 0.9 MG/DL (0.6-1.3); GFR ESTIMATE (CALCULATED) > 59 mL/min/; GLUCOSE 130 mg/dL (70-99); MAGNESIUM 1.8 mg/dl (1.3-2.7); PHOSPHORUS 3.7 mg/dL (2.5-4.9); POTASSIUM 4.1 MEQ/L (3.7-5.4); SODIUM 136 MEQ/L (136-147); UREA NITROGEN (BUN) 15 mg/dL (9-23)
[2018-05-04 07:46] VITALS: BP 129/77
[2018-05-04 15:26] VITALS: BP 108/65
[2018-05-05 00:55] VITALS: BP 132/60
[2018-05-05 07:09] VITALS: BP 116/56
[2018-05-05] MEDS ORDERED: Salonpas 4% Patch TD (11:34)
[2018-05-05 16:58] VITALS: BP 125/69
== END 2018-05-05 16:56 | disposition home health service (06) | DRG 101 ==
LOC: EME 16:31 → EDOF 20:30 → 5SOUTH 20:30 → ENRESERV 20:41 → 5SOUTH 21:51
PROVIDERS: Emergency Medicine; Internal Medicine
DX: G40.803 Other epilepsy, intractable, with status epilepticus (principal); S06.9X0S Unspecified intracranial injury without loss of consciousness, sequela; Z66 Do not resuscitate; K21.9 Gastro-esophageal reflux disease without esophagitis; I10 Essential (primary) hypertension; F32.9 Major depressive disorder, single episode, unspecified; E11.9 Type 2 diabetes mellitus without complications; E78.5 Hyperlipidemia, unspecified; G89.29 Other chronic pain; M16.11 Unilateral primary osteoarthritis, right hip; M17.9 Osteoarthritis of knee, unspecified; G47.33 Obstructive sleep apnea (adult) (pediatric); Z96.653 Presence of artificial knee joint, bilateral; E78.00 Pure hypercholesterolemia, unspecified; Z91.14 Patient's other noncompliance with medication regimen
CPT/HCPCS: 70450; 80048; 80053; 80175 90; 81003; 82550; 82553; 82948; 83036; 83735; 84100; 85025; 85027; 87086; 93005; 94799; 95819; 99281; 99285; J0696; J1644; J1815; J1953; J2060; J7030; J7050